=== PATIENT | female | born 1990 ===

== ENCOUNTER → 2018-08-15 | Outpatient (CLI) | payer OTHER ==
[~2018-08-15] MED LIST: PRENATAL CAPLE1 EACH PO
== END | disposition home or self-care (01) ==
LOC: PRENATAL 08:50
DX: O26.892 Other specified pregnancy related conditions, second trimester (principal)

== ENCOUNTER 2018-12-04 11:34 | Inpatient (IN) | payer OTHER ==
[~2018-12-04] VITALS: Ht 167.6 cm; Wt 81.6 kg
== END 2018-12-23 13:19 | disposition home or self-care (01) | DRG 807 ==
LOC: OB/GYN 12-21 06:30 → LDR 12-21 06:30 → OB/GYN 12-21 17:40
PROVIDERS: ADMIT Obstetrics & Gynecology
PROC: 10E0XZZ Delivery of Products of Conception, External Approach (ICD-10-PCS; principal; 2018-12-21)
PROC: 0KQM0ZZ Repair Perineum Muscle, Open Approach (ICD-10-PCS; 2018-12-21)
PROC: 3E0P7VZ Introduction of Hormone into Female Reproductive, Via Natural or Artificial Opening (ICD-10-PCS; 2018-12-21)
PROC: 3E033VJ Introduction of Other Hormone into Peripheral Vein, Percutaneous Approach (ICD-10-PCS; 2018-12-21)
PROC: 4A1HXCZ Monitoring of Products of Conception, Cardiac Rate, External Approach (ICD-10-PCS; 2018-12-21)
DX: O70.1 Second degree perineal laceration during delivery (principal); Z37.0 Single live birth; Z3A.39 39 weeks gestation of pregnancy

== ENCOUNTER 2018-12-12 14:19 | Outpatient (CLI) | payer OTHER | END 2018-12-12 20:39 | disposition home or self-care (01) | LOC: OBS/DEL 14:19 | DX: O36.8193 Decreased fetal movements, unspecified trimester, fetus 3 (principal); O26.843 Uterine size-date discrepancy, third trimester; O47.1 False labor at or after 37 completed weeks of gestation ==